=== PATIENT | female | born 1950 ===

== ENCOUNTER 2018-06-05 07:55 | Day surgery (SDC) | payer OTHER | END 2018-06-05 12:55 | disposition home or self-care (01) | LOC: AMB-ENDOS 07:55 | DX: K57.30 Diverticulosis of large intestine without perforation or abscess without bleeding (principal); K58.0 Irritable bowel syndrome with diarrhea ==

== ENCOUNTER 2019-03-13 11:32 | Emergency (ER) | payer OTHER ==
[~2019-03-13] VITALS: Ht 154.9 cm; Wt 66.7 kg
== END 2019-03-13 19:16 | disposition home or self-care (01) ==
LOC: ER 11:32
DX: K57.32 Diverticulitis of large intestine without perforation or abscess without bleeding (principal)